=== PATIENT | male | born 1950 | race Caucasian/White ===

== ENCOUNTER 2016-12-03 06:27 | Inpatient (IN) ==
--- NOTE | 2016-12-03 08:24 | Diag Imaging Result Doc PS360 ---
EXAM: US ABDOMEN-COMPLETE - 12/03/2016 HISTORY: R10.10, Upper abdominal pain, unspecified TECHNIQUE: Ultrasound abdomen COMPARISON: None. FINDINGS: The gallbladder is somewhat distended, measuring about 12.4 cm in length by 5-5.5 cm in diameter. There are one or two tiny shadowing gallstones in the gallbladder. There is possibly small amount of sludge in the gallbladder. The gallbladder de leon appear mildly to moderately thickened. The technologist reports positive sonographic Yancey's sign. There is no pericholecystic fluid identified. The common bile duct is normal caliber at 3 mm. There are several hepatic cysts, the largest of which measures 1.8 cm. There are no other abnormalities of the liver or spleen identified. There is no ascites seen. There is a questionable 4 mm stone versus artifact at the lower right kidney. There is a 1.7 cm cyst at the lower left kidney. There is no solid renal mass or hydronephrosis identified. Visualized portions of the pancreas are unremarkable. IMPRESSION: Distended gallbladder. Mildly to moderately thickened gallbladder de leon. One or two tiny gallstones and small amount sludge in gallbladder. Normal caliber common bile duct at 3 mm. Clinical correlation as to evidence of cholecystitis is recommended. Small hepatic cysts. Questionable 4 mm stone at lower right kidney versus artifact. No hydronephrosis. Small left renal cyst. Electronically signed by Naga Alvarez 12/03/2016 8:22 AM
[2016-12-03] MEDS ORDERED: ZOFRAN IV PRN (14:11)
[2016-12-03] MEDS ORDERED: DUONEB (A & A) INH PRN (14:11)
--- NOTE | 2016-12-03 15:04 | Diag Imaging Result Doc PS360 ---
EXAM: CHEST-2 VIEWS - 12/03/2016 HISTORY: r/o pna TECHNIQUE: PA and lateral chest COMPARISON: 10/26/2016 FINDINGS: Heart size is normal. The lungs appear clear. There is no pleural effusion or pneumothorax identified. There is mild thoracic spondylosis noted. IMPRESSION: No evidence of acute disease. Electronically signed by Naga Alvarez 12/03/2016 3:02 PM
[2016-12-03 15:16] LABS: MANUAL DIFF NEEDED? NO
[2016-12-03 15:22] LABS: BASO% 0.4 % (0.0-0.8); EOS# 0.31 X1000 (0.0-0.7); EOS% 2.2 % (0.0-10.0); HEMATOCRIT 41.7 % (42.0-52.0); HEMOGLOBIN 14.7 g/dL (14.0-18.0); IMM GRAN# 0.07 X1000 (0.0-0.04); IMM GRAN% 0.5 % (0.0-0.5); LYMPH# 1.41 X1000 (1.2-3.4); LYMPH% 10.1 % (20.5-51.1); MCH 30.3 PG (27-31); MCHC 35.3 g/dL (33-37); MONO# 1.34 X1000 (0.11-0.59); MONO% 9.6 % (1.7-9.3); MPV 10.2 FL (7.4-10.4); NEUT% 77.2 % (42.2-75.2); PLT 252 X1000 (130-400); RBC 4.85 XMIL (4.7-6.1)
--- NOTE | 2016-12-03 15:26 | EKG Report ---
Test Performed on : 12/03/2016 2:25:33 PM Test Reason : chest pain Blood Pressure : / mmHG Vent. Rate : 077 BPM Atrial Rate : 077 BPM P-R Int : 184 ms QRS Dur : 090 ms QT Int : 344 ms P-R-T Axes : 030 -26 033 degrees QTc Int : 389 ms Normal sinus rhythm. Normal ECG When compared with ECG of 14-APR-2016 10:17, No significant change was found Confirmed by Mario Callaway MD ([id number]) on 12/04/2016 7:57:52 AM
[2016-12-03 15:31] LABS: INR 0.98; PROTIME 10.3 Seconds (9.2-11.7)
[2016-12-03 15:44] LABS: AMYLASE 60 U/L (20-200); LIPASE 70 U/L (13-60)
[2016-12-03 15:47] LABS: ALBUMIN 3.7 g/dL (3.5-5.0); CALCIUM 9.7 mg/dL (8.8-10.2); POTASSIUM 4.7 mmol/L (3.5-5.1); TOTAL BILIRUBIN 0.8 mg/dL (0.20-1.00); TOTAL PROTEIN 7.4 g/dL (6.3-8.3)
[2016-12-03] MEDS: NS 1,000 ML IV SCH (16:20)
--- NOTE | 2016-12-03 16:46 | HISTORY AND PHYSICAL ---
Apparently I think it was Wednesday he said he was eating and following a couple minutes after he ate he had severe pain in the epigastrium right upper quadrant. This pain has waxed and waned now for going on 4 days so I guess that was Wednesday that it happened. He has not had much nausea, just a good deal of discomfort. Doctor is Dr. Olga Lim. An abdominal ultrasound done finally today showed distended gallbladder, mildly moderate thickened gallbladder de leon, 1 or 2 tiny gallstones and a small amount of sludge in the gallbladder. Normal caliber common bile duct was 3 mm and had a questionable 4 mm stone in the right kidney versus artifact. He is scheduled to get a CT and I think a CT of the abdomen. PAST MEDICAL HISTORY: 1. I think he has had spinal fusion in multiple levels. 2. He has lower lumbar disk arthralgia. 3. Diabetes mellitus type 2. 4. He had a myocardial perfusion scan back in July 2015 essentially unremarkable. ALLERGIES: He is allergic to the influenza virus vaccine and aspartame. FAMILY HISTORY: Noncontributory. SOCIAL HISTORY: Denies any tobacco or significant alcohol. REVIEW OF SYSTEMS: General: No weight gain or loss. He has had fever and chills in the last couple of days and abdominal pain, epigastric pain. Respiratory: No increased work of breathing or dyspnea. Cardiovascular: No chest pain or tachy palpitation. GI/: As above. Endocrinologic/Hematologic: No significant history. LABS: White count 42449, hematocrit 41, platelet count 252,000. Sodium 134, potassium 4.7, chloride 97, BUN 23, creatinine 1.5. Liver functions unremarkable. PT was 10.3. Note that his lipase was 70, amylase was 60. A chest x-ray, no evidence of acute disease. ASSESSMENT AND PLAN: 1. Appears to have acute cholecystitis, biliary colic. Dr. Medeiros has seen him and plans to do surgery tomorrow. We will put him on some empiric antibiotic, IV fluid. We are using Zosyn 3.375 mg IV q.6 hours and give him normal saline at 100 mL an hour. 2. Diabetes mellitus type 2. Aware. Check sugars. 3. Arthritis of cervical and lumbar. Aware. 4. Reviewed all his lab. cc: Mitchell Holcomb MD
[2016-12-03] MEDS: ZOSYN 3.375 GM/NS 3.375 GM/50 ML IVPB IV SCH ×3 (16:58→22:50)
--- NOTE | 2016-12-03 17:43 | CONSULTATION ---
DATE OF CONSULTATION: 12/03/2016 REQUESTING PHYSICIAN: Dr. Holcomb. REASON FOR CONSULT: Concerning possible cholecystitis and abdominal pain. HISTORY OF PRESENT ILLNESS: A 66-year-old male who reports a 4-day history of abdominal pain that started at midnight 4 days ago. He said it initially located in epigastric and he denies any kind of pain like this in the past. He denies any nausea or any symptoms suggestive of previous biliary disease. He was seen by his primary care physician and had an ultrasound that showed a distended gallbladder that was mildly thickened, there appeared to be no signs of pericholecystic fluid. Given his abdominal pain he was directly admitted to the hospital. The hospitalist service had evaluated and asked me to see the patient. Again is reporting pain in the epigastric and the right upper quadrant, and never had symptoms like this before in the past. PAST MEDICAL HISTORY: Includes diabetes mellitus, type 2. Reported COPD. Reported hypertension. Reported gastroesophageal reflux disease. PAST SURGICAL HISTORY: Includes previous cervical spinal fusion. ALLERGIES: Aspartamine and influenza virus vaccine. SOCIAL HISTORY: Denies alcohol, tobacco or illicit drugs. FAMILY HISTORY: Reviewed with patient, noncontributory. HOME MEDICATIONS: Available from previous reports: He takes atenolol, pravastatin, and Protonix. He is currently on antibiotics by the hospitalist service. REVIEW OF SYSTEMS: A full 10 point review of systems obtained, negative except as specified in HPI. PHYSICAL EXAMINATION: Vital Signs: Patient is currently afebrile. Temperature 99.6 degrees. Remainder of vital signs are stable in the hospital. General Exam: No acute distress but appears uncomfortable. male, looks stated age. HEENT: Normocephalic, atraumatic. Pupils equal, round, reactive to light. Mucous membranes moist. Oropharynx benign. Neck: Supple. Trachea midline. Cardiovascular: Regular rate and rhythm. Lungs: Grossly clear. Abdomen: Soft, distended mildly. There is some guarding and rebound tenderness in the right upper quadrant, some mild tenderness in the epigastric. No diffuse peritonitis but some potential localized peritonitis in the right upper quadrant. Extremities: Moves all extremities. Neurologic: Grossly intact. Skin: No signs of jaundice. Vascular: All extremities perfused. DIAGNOSTIC DATA: Laboratory: White blood cell count 13, hematocrit is 41.7. Remainder of labs reviewed. Of note, patient's bilirubin was normal. His AST, ALT and alkaline phosphatase were all normal. He does have a slightly elevated lipase at 70. Imaging: Ultrasound reviewed. His gallbladder does not look particularly distended or particularly inflamed. ASSESSMENT/PLAN: A 66-year-old male with abdominal pain. 1. Abdominal pain. At this time there is some indication this might be his gallbladder although his exam seems to be more severe than what the imaging correlates with. His labs are normal except for white blood cell count of 13. Given this I recommend a CT scan with IV contrast to make sure there is no other pathology that is causing his increased abdominal pain. He is currently on antibiotics. Would keep him n.p.o. If no other etiology found on CT scan besides the gallbladder would recommend cholecystectomy in the morning, and I do have him on the schedule. 2. Multiple medical comorbidities, currently being managed by the hospitalist service. I appreciate the consult. I will continue to follow with you. I will follow up with the CT scan which has been ordered. cc: Caleb Medeiros MD
--- NOTE | 2016-12-03 17:55 | Diag Imaging Result Doc PS360 ---
EXAM: CT ABD WITH IV CONTRAST ONLY - 12/03/2016 HISTORY: abdominal pain TECHNIQUE: With intravenous contrast only per request the referring provider. Dose reduction protocol. COMPARISON: 07/23/2015 FINDINGS: The gallbladder is distended. The gallbladder de leon appear moderately to substantially thickened. The external margins of the gallbladder de leon are mildly hazy, there is apparent mild pericholecystic inflammation. These findings are suspicious for cholecystitis. There are one or two tiny calcified gallstones in the dependent portion of the gallbladder. There are no large calcified gallstones identified. There is no biliary ductal dilatation identified. There are scattered small hepatic cysts. The spleen, adrenal glands, and pancreas are unremarkable. There is no indication of pancreatitis. There is a nonobstructing stone of the lower right kidney. There are a few small renal cysts. There is no hydronephrosis. There are no substantial enlarged lymph nodes identified. There is no evidence of bowel obstruction. There is uncomplicated colonic diverticulosis. There is no free air or gas containing abscess identified. IMPRESSION: Distended gallbladder with significantly thickened gallbladder de leon and mild pericholecystic inflammation. These findings are suspicious for cholecystitis. Small hepatic and renal cysts. Nonobstructing stone in right kidney. No hydronephrosis. Uncomplicated colonic diverticulosis. Electronically signed by Naga Alvarez 12/03/2016 5:53 PM
[2016-12-03 18:01] LABS: URINE CULTURE NEEDED? NO; URINE MICRO REVIEW NEEDED? NO; URINE SOURCE CLEAN CATCH
[2016-12-03 18:06] LABS: BILIRUBIN URINE NEGATIVE (NEGATIVE); BLOOD URINE NEGATIVE (NEGATIVE); COLOR YELLOW; GLUCOSE URINE NEGATIVE (NEGATIVE); LEUKOCYTES URINE NEGATIVE (NEGATIVE); NITRITE URINE NEGATIVE (NEGATIVE); PROTEIN URINE NEGATIVE (NEGATIVE); TURBIDITY URINE CLEAR (CLEAR); UR EPITHELIAL CELLS <10 /HPF (<10); URINE BACTERIA NEGATIVE /HPF; URINE RBC <10 /HPF (<10); URINE WBC <10 /HPF (<10); UROBILINOGEN URINE NORMAL (NORMAL)
[2016-12-04] MEDS: NS 1,000 ML IV SCH ×3 (03:44→20:10)
[2016-12-04] MEDS ORDERED: DILAUDID IV PRN (05:37)
[2016-12-04 05:50] LABS: MANUAL DIFF NEEDED? NO
[2016-12-04 05:54] LABS: BASO% 0.4 % (0.0-0.8); EOS# 0.23 X1000 (0.0-0.7); EOS% 1.7 % (0.0-10.0); HEMATOCRIT 40.1 % (42.0-52.0); HEMOGLOBIN 14.2 g/dL (14.0-18.0); IMM GRAN# 0.05 X1000 (0.0-0.04); IMM GRAN% 0.4 % (0.0-0.5); LYMPH# 1.52 X1000 (1.2-3.4); LYMPH% 11.2 % (20.5-51.1); MCH 30.3 PG (27-31); MCHC 35.4 g/dL (33-37); MCV 85.5 FL (81-99); MONO# 1.55 X1000 (0.11-0.59); MONO% 11.4 % (1.7-9.3); MPV 10.2 FL (7.4-10.4); NEUT% 74.9 % (42.2-75.2); PLT 238 X1000 (130-400); RBC 4.69 XMIL (4.7-6.1)
--- NOTE | 2016-12-04 06:10 | PROGRESS NOTE ---
DATE: 12/04/2016 SUBJECTIVE: Patient feeling better from last night. He did have a CT scan that showed only acute cholecystitis. No other etiology. OBJECTIVE: Vital Signs: Patient is currently afebrile. His vital signs have been stable. General: No acute distress. Appears more comfortable today. HEENT: Normocephalic, atraumatic. Pupils equal, round, reactive to light. Mucous membranes moist. Oropharynx benign. Neck: Supple. Trachea midline. Cardiovascular: Regular rate and rhythm. Lungs: Grossly clear. Abdomen: Soft. Tender to palpation in the right upper quadrant but less than last night. Extremities: Moves all extremities. Neurologic: Grossly intact. Skin: No signs of jaundice. Vascular: All extremities perfused. LABORATORY: For the most part, pending, but his white blood cell count is 13.5, which is down slightly from yesterday. His CMP is currently pending. IMAGING: CT scan reviewed from yesterday, noted above. ASSESSMENT AND PLAN: A 66-year-old male with acute cholecystitis. 1. Acute cholecystitis. At this time, we will plan for surgical intervention with laparoscopic cholecystectomy. The risks, benefits, and alternatives were discussed. All questions answered. 2. Multiple medical comorbidities currently being managed by the hospitalist service. We will follow up with their management. cc: Caleb Medeiros MD
[2016-12-04] MEDS ORDERED: SODIUM CHLORIDE 0.9% ONE (06:17)
[2016-12-04] MEDS ORDERED: XYLOCAINE 1%/EPI 1:100,000 ONE (06:17)
[2016-12-04] MEDS ORDERED: MARCAINE 0.25% PF/EPI 1:200,000 ONE (06:17)
[2016-12-04] MEDS ORDERED: LR 1,000 ML ONE (06:17)
[2016-12-04 06:20] LABS: ALBUMIN 3.2 g/dL (3.5-5.0); CALCIUM 9.2 mg/dL (8.8-10.2); POTASSIUM 4.3 mmol/L (3.5-5.1); TOTAL BILIRUBIN 1.16 mg/dL (0.20-1.00); TOTAL PROTEIN 6.7 g/dL (6.3-8.3)
[2016-12-04] MEDS: ZOSYN 3.375 GM/NS 3.375 GM/50 ML IVPB IV SCH ×6 (06:35→23:47)
[2016-12-04] MEDS: PROTONIX PO SCH ×2 (06:45→09:31)
[2016-12-04] MEDS ORDERED: FENTANYL ONE (08:06)
[2016-12-04] MEDS ORDERED: DIPRIVAN 1% ONE (08:06)
--- NOTE | 2016-12-04 08:12 | OPERATIVE NOTE ---
PROCEDURE DATE: 12/04/2016 PREOPERATIVE DIAGNOSIS: Acute cholecystitis. POSTOPERATIVE DIAGNOSIS: Acute cholecystitis. PROCEDURE: Laparoscopic cholecystectomy. SURGEON: Caleb Medeiros MD. CARD SERVICES SPECIALIST: None. ANESTHESIA: General endotracheal. INTRAOPERATIVE FINDINGS: As above. COMPLICATIONS: None at time of dictation. ESTIMATED BLOOD LOSS: 50 mL. SPECIMENS REMOVED: Gallbladder. DRAINS: A 19-[place] drain placed. BRIEF HISTORY: The patient is a 66-year-old male presenting with right upper quadrant pain. He was found to have acute cholecystitis. The risks, benefits, and alternatives for surgical intervention were discussed. All questions were answered. DESCRIPTION OF PROCEDURE: After informed consent was obtained, patient was brought to the operative theatre, transferred to operating table, placed in supine position. General endotracheal anesthesia was then performed without complication. A formal time-out was then performed confirming patient, date, procedure. All were in agreement at that time. Attention turned to the abdomen. An infraumbilical incision was made through which using Optiview technique, we were able to insert an 11 mm trocar, connected to insufflation, pneumoperitoneum was achieved. Under direct visualization, placed 3 more trocars, all 5 mm. One in the subxiphoid, 2 in the right upper quadrant. Using these, the gallbladder was identified. There was some adhesions and it was densely inflamed, and suggests acute cholecystitis. We were able to aspirate some of the fluid from the gallbladder to make it more amenable to grasping, but we were able to grasp it and retract it cephalad. We dissected out the cystic duct and cystic artery to achieve the critical view of safety. We doubly clipped and ligated the cystic duct and cystic artery. We then dissected the gallbladder off the gallbladder fossa using electrocautery, placed it into an endobag and brought it out through the infraumbilical incision, which had to be enlarged to accommodate the enlarged gallbladder. We irrigated out the abdomen copiously until the suctioned fluid was clear. Given the dense inflammatory process, we elected to leave a drain, placed a 19- [place] drain through the most lateral trocar. Placed it in the gallbladder fossa, secured it in place. We then removed all trocars, disconnected insufflation. Pneumoperitoneum was released. We then closed the infraumbilical incision with a [id number] 0 Vicryl with good results. All skin incisions were copiously irrigated and closed with 4-0 Monocryl. The patient tolerated the procedure well and was transferred to recovery room in stable condition. cc: Caleb Medeiros MD
[2016-12-04] MEDS ORDERED: VENTOLIN HFA INH PRN (08:41)
[2016-12-04] MEDS ORDERED: NORCO-10 PO PRN (08:41)
[2016-12-04] MEDS ORDERED: NEO-SYNEPHRINE ONE (08:42)
[2016-12-04] MEDS ORDERED: ZOFRAN ONE (08:42)
[2016-12-04] MEDS ORDERED: NEOSTIGMINE ONE (08:42)
[2016-12-04] MEDS ORDERED: XYLOCAINE-MPF 2% ONE (08:43)
[2016-12-04] MEDS ORDERED: ROBINUL ONE (08:43)
[2016-12-04] MEDS ORDERED: DECADRON ONE (08:43)
[2016-12-04] MEDS ORDERED: ZEMURON ONE (08:43)
[2016-12-04] MEDS ORDERED: QUELICIN (DOSE) ONE (08:43)
[2016-12-04] MEDS ORDERED: LR 2,000 ML ONE (08:43)
[2016-12-04] MEDS: TENORMIN PO SCH (09:31)
[2016-12-04] MEDS: WELCHOL PO SCH ×3 (09:50→16:36)
--- NOTE | 2016-12-04 14:30 | PROGRESS NOTE ---
DATE: 12/04/2016 SUBJECTIVE: He does feel a little better. Dr. Medeiros took him for surgery, laparoscopic cholecystectomy. Tolerating liquids. OBJECTIVE: Vital Signs: Temperature 99.7, pulse 65, respirations 24, blood pressure 130/70. HEENT: Pupils are equal. Lungs: Clear in all lung ralph. Cardiovascular: Regular rhythm and rate without murmur or S3. Abdomen: Soft. Skin: Warm and dry. : Good urine output 2300 mL. LAB: White count 13,570, hematocrit 40, platelet count 238. Sodium 137, potassium 4.3, chloride 101, bicarb 21, BUN 21, creatinine 1.4, with a lipase of 78, amylase 60. ASSESSMENT AND PLAN: 1. Acute cholecystitis status post laparoscopic cholecystectomy. Doing well. We will also keep him here today. Advance diet per Dr. Medeiros. 2. Cervical lumbar disk arthralgia. I think he has had cervical disk fusion. 3. Diabetes mellitus type 2. Sugars appear under control. 4. Nutrition, looks good. cc: Mitchell Holcomb MD
[2016-12-04] MEDS: PERIDEX MT SCH (20:10)
[2016-12-04] MEDS ORDERED: TRICOR PO SCH (21:00)
[2016-12-05] MEDS: ZOSYN 3.375 GM/NS 3.375 GM/50 ML IVPB IV SCH (05:02)
[2016-12-05] MEDS: NS 1,000 ML IV SCH (06:03)
[2016-12-05] MEDS: PROTONIX PO SCH (06:03)
[2016-12-05 07:57] VITALS: BP 129/72
[2016-12-05] MEDS: PERIDEX MT SCH (09:50)
[2016-12-05] MEDS: WELCHOL PO SCH (09:51)
[2016-12-05] MEDS: TENORMIN PO SCH (09:53)
--- NOTE | 2016-12-05 10:43 | DISCHARGE SUMMARY ---
ADMISSION DATE: 12/03/2016 DISCHARGE DATE: 12/05/2016 HOSPITAL COURSE: He had been eating several days before this and had a sudden onset of abdominal pain, epigastric, right upper quadrant, and it persisted. He presented to Dr. Olga Lim. She did an ultrasound consistent with acute cholecystitis. Admitted. Dr. Medeiros did a laparoscopic cholecystectomy. Postop, he did well, and he was anxious to go home. I will send him home on 12/05/2016, but he does have underlying diabetes mellitus. He has a history of a normal myocardial perfusion scan back in 2016. He does have lumbar disk and cervical disk arthralgia, but is ready to go home. Advance his diet slowly. Follow up with Dr. Olga Lim. DISCHARGE MEDICATIONS: We will give him something for pain p.r.n. He will be back on Welchol 145 mg at bedtime. Protonix was stopped. Stop the Zosyn. Tenormin 50 mg a day. cc: Mitchell Holcomb MD
== END 2016-12-05 11:31 | disposition home or self-care (01) ==
LOC: US 06:27 → SUATTDRO 13:44 → 4N 13:44
PROVIDERS: ATTEND Emergency Medicine